=== PATIENT | female | born 1995 | race Caucasian/White ===

== ENCOUNTER 2020-11-05 14:43 | Outpatient (RCR) | payer BC, SELFPAY ==
[2020-09-04 15:22] LABS: INR 2.2; Prothrombin Time 24.7 Seconds (11.1-14.7)
[2020-10-09 14:48] LABS: INR 2.1; Prothrombin Time 24.2 Seconds (11.1-14.7)
[2020-11-05 15:43] LABS: INR 2.4; Prothrombin Time 26.3 Seconds (11.1-14.7)
== END 2020-12-03 23:59 | disposition home or self-care (01) ==
LOC: ANHLAB 14:43
DX: Z51.81 Encounter for therapeutic drug level monitoring (principal); I26.99 Other pulmonary embolism without acute cor pulmonale; Z79.01 Long term (current) use of anticoagulants
CPT/HCPCS: 36415; 85610